=== PATIENT | female | born 1950 | race Two or more races ===

== ENCOUNTER → 2024-03-16 | Outpatient (CLI) | payer MEDICARE, BC, SELFPAY ==
--- NOTE | 2024-03-16 14:45 | XR_ITS ---
Examination: Diagnostic digital mammography, bilateral Computer aided detection 3-D breast Tomosynthesis, bilateral Date and time of exam: March 16, 2024 1407 hours INDICATIONS: Mammogram August 31, 2023 focal asymmetries remain upper outer right breast and 12:00 position left breast Technique: Nonmagnified MLO, CC views of the breasts to been obtained, reconstructed from 3-D Tomosynthesis images. R2 computer aided detection program utilized for evaluation of suspicious masses and/or abnormal calcifications. 3-D Tomosynthesis images obtained. Findings: The breasts are heterogeneously dense, which may obscure small masses No suspicious right breast mass is depicted Focal asymmetry upper left breast MLO view is stable in appearance Please see the bilateral breast sonography report indicating numerous circumscribed of bilateral breast nodules Impression: BI-RADS Category 0: Incomplete: Need additional imaging evaluation Follow-up bilateral breast sonography is strongly advised to compare with the August 31, 2023 exam.
== END | disposition home or self-care (01) ==
LOC: CDIM 13:55
PROVIDERS: Referring Provider Family Medicine; Visit Provider Family Medicine
DX: R92.8 Other abnormal and inconclusive findings on diagnostic imaging of breast (principal)
CPT/HCPCS: 77062; 77066; G0279

== ENCOUNTER → 2024-07-25 | Outpatient (CLI) | payer MEDICARE, BC, SELFPAY ==
--- NOTE | 2024-07-25 15:53 | XR_ITS ---
Examination: Hand, left 3 views Technique: Hand AP, oblique, lateral 3 views Date and time of exam: July 25, 2024 1556 hours INDICATIONS: Patient fell yesterday with injury of the hand, hand pain. FINDINGS: Acute mildly impacted fractures proximal aspect fifth metacarpal No dislocation IMPRESSION: Acute mildly impacted comminuted nondisplaced fractures proximal fifth metacarpal
== END | disposition home or self-care (01) ==
LOC: CDIM 15:50
PROVIDERS: Referring Provider Family Medicine; Visit Provider Family Medicine
DX: S62.307A Unspecified fracture of fifth metacarpal bone, left hand, initial encounter for closed fracture (principal); W19.XXXA Unspecified fall, initial encounter
CPT/HCPCS: 73130

== ENCOUNTER → 2024-08-03 | Outpatient (CLI) | payer MEDICARE, BC, SELFPAY ==
--- NOTE | 2024-08-03 12:59 | XR_ITS ---
Examination: Breast ultrasound complete, bilateral Date and time of exam: August 03, 2024 1320 hours Comparison August 31, 2023 Mammogram October 20, 2023 4 mm focal asymmetry 12:00 position left breast 5 mm focal asymmetry upper outer right breast, bilateral breast nodules on breast sonogram August 31, 2023 Technique: Real-time grayscale ultrasonographic imaging bilateral breasts, including all 4 quadrants as well as nipple retroareolar and axillary regions. Findings: Sonographic images right breast 5:00 nodule lobular margins 6 x 8 mm 8:00 nodule circumscribed 6 by 8 mm 9:00 nodule partially indistinct margins 8 x 9 mm Sonographic images left breast 2:00 nodule indistinct margins 9 x 10 mm 3:00 nodule circumscribed 6 x 5 mm Retroareolar nodule indistinct margins 6 x 8 mm IMPRESSION: BI-RADS Category 4: Suspicious for malignancy Suspicious nodules 9:00 position right breast, 2:00, retroareolar left breast Biopsy of both 3 nodules under ultrasound guidance is needed to exclude breast carcinoma
== END | disposition home or self-care (01) ==
PROVIDERS: PCP Family Medicine; Referring Provider Family Medicine; Visit Provider Family Medicine
DX: N63.15 Unspecified lump in the right breast, overlapping quadrants (principal); N63.21 Unspecified lump in the left breast, upper outer quadrant; N63.42 Unspecified lump in left breast, subareolar
CPT/HCPCS: 76641

== ENCOUNTER → 2025-02-28 | Outpatient (CLI) | payer MEDICARE, BC, SELFPAY ==
--- NOTE | 2025-02-28 13:29 | XR_ITS ---
Examination: Hand, left 3 views Technique: Hand AP, oblique, lateral 3 views Date and time of exam: February 2020, 2024, 1423 hours INDICATIONS: Left hand pain months FINDINGS: Prominent osteopenia Mild diffuse narrowing joints of the wrist and hand Erosion distal fourth metacarpal and fifth metacarpal Moderate osteoarthritis interphalangeal joint first digit IMPRESSION: Mild diffuse narrowing joints of the wrist and hand Erosions involving the distal fourth and fifth metacarpals, clinical correlation advised
== END | disposition home or self-care (01) ==
LOC: CDIM 13:08
PROVIDERS: PCP Family Medicine; Referring Provider Internal Medicine; Visit Provider Internal Medicine
DX: M25.842 Other specified joint disorders, left hand (principal); M85.842 Other specified disorders of bone density and structure, left hand
CPT/HCPCS: 73130